=== PATIENT | female | born 1960 | race African-American/Black ===

== ENCOUNTER 2023-12-28 13:09 | Emergency (ER) | payer MEDICAID, OTHER ==
[~2023-12-28] VITALS: Ht 175.3 cm; Wt 55.4 kg
[2023-12-28] MEDS ORDERED: ACET500T58 PO (16:22)
[2023-12-28] MEDS ORDERED: MELO7.5T7 PO (16:22)
[2023-12-28] MEDS: cloNIDine HCL 0.1 MG TAB PO ONE (16:36)
[2023-12-28 17:00] VITALS: BP 135/66; PULSE 66; RESP 18; TEMP 97.8; O2SAT 98
[2023-12-28] MEDS ORDERED: AML5T PO (17:18)
== END 2023-12-28 17:19 | disposition home or self-care (01) ==
LOC: ER 13:09
DX: M19.012 Primary osteoarthritis, left shoulder (principal); M17.11 Unilateral primary osteoarthritis, right knee; J45.909 Unspecified asthma, uncomplicated; F17.210 Nicotine dependence, cigarettes, uncomplicated
CPT/HCPCS: 73030; 73562

== ENCOUNTER 2024-02-15 22:03 | Inpatient (IN) | payer MEDICAID ==
[~2024-02-15] VITALS: Ht 157.5 cm; Wt 61.6 kg
[~2024-02-15 22:03] MED LIST: ACET500T58 PO; AML5T PO; MELO7.5T7 PO
[2024-02-15] MEDS: SODIUM CHLORIDE 0.9% 1,000 ML IVB ONE (22:30)
[2024-02-15 22:49] LABS: Basophils # (auto) 0 10 ^3/uL (0-0.2); Basophils % (auto) 0.3 % (0.0-2.0); Eosinophils # (auto) 0 10 ^3/uL (0-0.8); Hemoglobin 13.1 g/dL (12.2-16.2); Mean Corpuscular Hemoglobin 36.2 pg (28.0-32.0); Mean Corpuscular Hgb Conc. 34.8 g/dL (32.0-36.0); Red Blood Cells 3.61 10^6/uL (4.0-5.20); White Blood Cell 5.8 10^3/uL (4.4-10.8)
[2024-02-15 22:50] LABS: Eosinophils % (auto) 0.5 % (0.0-7.0); Hematocrit 37.5 % (36.0-46.0); Lymphocytes # (auto) 3.2 10 ^3/uL (0.4-5.4); Lymphocytes % (auto) 54.2 % (10.0-50.0); Monocytes # (auto) 0.6 10 ^3/uL (0-1.3); Monocytes % (auto) 10.7 % (0.0-12.0); Neutrophils % (auto) 34.3 % (37.0-80.0); Nucleated Red Blood Cells % 0.1 %; Red Cell Distribution Width 13.6 % (11.8-14.3)
[2024-02-15 23:08] LABS: Chloride 109 mmol/L (98-107); Potassium 3.2 mmol/L (3.5-5.1); Sodium 139 mmol/L (136-145)
[2024-02-15 23:09] LABS: Anion Gap 8 (5-15); Carbon Dioxide 22 mmol/L (20-30)
[2024-02-15 23:10] LABS: Calcium 9.9 mg/dL (8.5-10.1)
[2024-02-15 23:15] LABS: Blood Alcohol 17.9 mg/dL (<10); Glucose 100 mg/dL (74-106)
[2024-02-15 23:34] LABS: BUN/Creatinine Ratio 7.8 (10.0-20.0); Blood Urea Nitrogen < 5 mg/dL (9-23)
[2024-02-16] MEDS ORDERED: ONDANSETRON HCL 4 MG/2 ML VIAL IV PRN
[2024-02-16] MEDS ORDERED: TEMAZEPAM 15 MG CAP PO PRN
[2024-02-16] MEDS ORDERED: ACETAMINOPHEN 325 MG TAB PO PRN
[2024-02-16 04:33] VITALS: PULSE 78; RESP 17; O2SAT 99
[2024-02-16] MEDS: POTASSIUM CHL 20 Meq TABLET PO ONE (05:40)
[2024-02-16] MEDS ORDERED: cloNIDine HCL 0.1 MG TAB PO PRN (06:45)
[2024-02-16] MEDS: amLODIPine BESYLATE 5 MG TAB PO SCH (07:59)
[2024-02-16 08:02] LABS: Chloride 112 mmol/L (98-107); Potassium 3.8 mmol/L (3.5-5.1); Sodium 140 mmol/L (136-145)
[2024-02-16 08:04] LABS: Anion Gap 4 (5-15); Calcium 8.9 mg/dL (8.5-10.1); Carbon Dioxide 24 mmol/L (20-30)
[2024-02-16 08:09] LABS: BUN/Creatinine Ratio 11.5 (10.0-20.0); Blood Urea Nitrogen 6 mg/dL (9-23); Glucose 87 mg/dL (74-106)
[2024-02-16] MEDS ORDERED: hydrALAZINE HCL 20 MG/ML VL IV PRN (08:45)
[2024-02-16 09:08] VITALS: PULSE 83; RESP 19; O2SAT 96
[2024-02-16 09:29] LABS: INR 1.08 (0.9-1.15); Partial Thromboplastin Time 24.4 SEC (24.5-34.5); Prothrombin Time 11.4 sec (9.3-11.8)
[2024-02-16 09:38] LABS: Folate (Folic Acid) 47.38 ng/mL (>5.38)
[2024-02-16 09:42] LABS: Urine Bacteria MANY /hpf (None Seen); Urine Blood Negative /uL (Negative); Urine Clarity Turbid (Clear); Urine Color Light-Orange (Yellow); Urine Hyaline Cast FEW /lpf (0 - 2); Urine Mucus FEW (None Seen); Urine Protein, UAD Negative (Negative); Urine Specific Gravity 1.014 (1.001-1.035); Urine Urobilinogen Normal (Negative); Urine WBC 4 /hpf (0 - 5)
[2024-02-16 09:50] LABS: Amphetamine Screen, Urine Neg (NEGATIVE); Barbiturate Scree,Urine Neg (NEGATIVE); Benzodiazephine Screen, Urine Neg (NEGATIVE); Cocaine Screen, Urine Neg (NEGATIVE); Opiate Scree,Urine Neg (NEGATIVE)
[2024-02-16 09:51] LABS: Cannabinoid Screen, Urine Pos (NEGATIVE); Phencyclidine Screen, Urine Neg (NEGATIVE)
[2024-02-16 09:56] VITALS: PULSE 87; RESP 16; O2SAT 96
[2024-02-16 09:56] LABS: Basophils # (auto) 0 10 ^3/uL (0-0.2); Basophils % (auto) 0.3 % (0.0-2.0); Eosinophils # (auto) 0 10 ^3/uL (0-0.8); Eosinophils % (auto) 0.5 % (0.0-7.0); Hematocrit 36.5 % (36.0-46.0); Hemoglobin 12.2 g/dL (12.2-16.2); Lymphocytes # (auto) 2.3 10 ^3/uL (0.4-5.4); Lymphocytes % (auto) 51.9 % (10.0-50.0); Mean Corpuscular Hemoglobin 34.9 pg (28.0-32.0); Mean Corpuscular Hgb Conc. 33.5 g/dL (32.0-36.0); Mean Corpuscular Volume 104.3 fL (80.0-100.0); Monocytes # (auto) 0.6 10 ^3/uL (0-1.3); Monocytes % (auto) 12.8 % (0.0-12.0); Neutrophils # (auto) 1.6 10 ^3/uL (1.6-8.6); Neutrophils % (auto) 34.5 % (37.0-80.0); Nucleated Red Blood Cells % 0.2 %; Red Cell Distribution Width 13.7 % (11.8-14.3); White Blood Cell 4.5 10^3/uL (4.4-10.8)
[2024-02-16] MEDS ORDERED: LORazepam 2MG/ML-1ML VIAL IV PRN ×3 (10:00)
[2024-02-16] MEDS: THIAMINE 100mg/ml INJ (200mg/2ml VIAL) IV SCH (10:11)
[2024-02-16] MEDS: LISINOPRIL 5 MG TAB PO SCH (10:11)
[2024-02-16 10:38] LABS: Erythrocyte Sedimentation Rate 14 mm/hr (0-20)
[2024-02-16 10:40] LABS: Rapid Influenza A Negative (Negative); Rapid Influenza B Negative (Negative)
[2024-02-16] MEDS: FOLIC ACID 1 MG in D5W 5% 50 ML INJ ONE (10:41)
[2024-02-16 11:50] LABS: Alkaline Phosphatase 60 U/L (46-116); CRP High Sensitivity < 0.02 mg/dL (<1.0); Magnesium 1.2 mg/dL (1.6-2.6)
[2024-02-16 11:51] LABS: Alanine Aminotransferase 43 U/L (7-40); Aspartate Aminotransferase 55 U/L (13-40)
[2024-02-16 11:52] LABS: Albumin 3.7 g/dL (3.2-4.8); Bilirubin, Total 0.7 mg/dL (0.2-1.0); Total Protein 6.3 g/dL (5.7-8.2)
[2024-02-16 12:58] LABS: COVID19 ANTIGEN SOFIA FIA NEGATIVE (NEGATIVE)
[2024-02-16] MEDS ORDERED: SIMV20TA20 PO (17:10)
[2024-02-16] MEDS: ENOXAPARIN SOD 40 MG/0.4 ML SYRINGE SC ONE (19:00)
[2024-02-16] MEDS: cefTRIAXone 1GM/50ML D5W 50 ML IV ONE (19:00)
[2024-02-16 20:00] VITALS: PULSE 75
[2024-02-16] MEDS: MAGNESIUM SULFATE 1GM/100ML 100 ML IV SCH (20:00)
[2024-02-16 21:14] VITALS: BP 143/68; PULSE 74; RESP 17; TEMP 98.3; O2SAT 96
[2024-02-16] MEDS: ATORVASTATIN 20 MG TAB PO SCH (22:00)
[2024-02-17 01:21] VITALS: BP 140/71; PULSE 69; RESP 16; TEMP 98.1; O2SAT 97
[2024-02-17 05:53] VITALS: BP 142/91; PULSE 84; RESP 17; TEMP 98.9; O2SAT 100
[2024-02-17 06:05] LABS: Hematocrit 36.6 % (36.0-46.0); Red Blood Cells 3.52 10^6/uL (4.0-5.20); Red Cell Distribution Width 13.7 % (11.8-14.3); White Blood Cell 4.4 10^3/uL (4.4-10.8)
[2024-02-17 06:08] LABS: Hemoglobin 12.5 g/dL (12.2-16.2); Mean Corpuscular Hemoglobin 35.5 pg (28.0-32.0); Mean Corpuscular Hgb Conc. 34.1 g/dL (32.0-36.0); Mean Corpuscular Volume 104.1 fL (80.0-100.0)
[2024-02-17 06:15] LABS: Anion Gap 6 (5-15); Carbon Dioxide 23 mmol/L (20-30); Chloride 108 mmol/L (98-107); Potassium 3.5 mmol/L (3.5-5.1); Sodium 137 mmol/L (136-145)
[2024-02-17 06:16] LABS: Calcium 9.6 mg/dL (8.7-10.4)
[2024-02-17 06:21] LABS: Glucose 87 mg/dL (74-106); Magnesium 1.6 mg/dL (1.6-2.6)
[2024-02-17 06:23] LABS: BUN/Creatinine Ratio 9.4 (10.0-20.0); Blood Urea Nitrogen < 5 mg/dL (9-23)
[2024-02-17 06:25] LABS: Basophils % (manual) 0 (0.0-2.0); Blast Cells 0; Eosinophils % (manual) 0 (0-7); Metamyelocytes % 0; Myelocytes % 0; Promyelocytes % 0; Reactive Lymphocytes 0
[2024-02-17 06:42] LABS: Cholesterol 183 mg/dL (< 200); HDL Cholesterol 73 mg/dL (40-59); LDL Cholesterol 103 mg/dL (< 100); Triglycerides 84 mg/dL (< 150)
[2024-02-17 06:51] LABS: Band Neutrophils % (manual) 1
[2024-02-17 06:52] LABS: Large Platelets FEW; Lymphocytes % (manual) 60 (10.0-50.0); Macrocytosis Slight; Monocytes % (manual) 9 (0-12); Platelet Estimate Decreased
[2024-02-17 07:07] LABS: RPR Non Reactive (Non Reactive)
[2024-02-17 08:00] VITALS: PULSE 73
[2024-02-17] MEDS ORDERED: THIA100T10 GT (08:19)
[2024-02-17] MEDS ORDERED: LISI20TA56 PO (08:19)
[2024-02-17] MEDS ORDERED: CEFP200T15 PO (08:19)
[2024-02-17] MEDS ORDERED: MAGN400T40 PO (08:19)
[2024-02-17] MEDS ORDERED: ATOR40TA52 PO (08:21)
[2024-02-17 08:53] VITALS: BP 135/88; PULSE 76; RESP 20; TEMP 98.4; O2SAT 97
[2024-02-17] MEDS: cefTRIAXone 1GM/50ML D5W 50 ML IV SCH (09:00)
[2024-02-17] MEDS: ENOXAPARIN SOD 40 MG/0.4 ML SYRINGE SC SCH (10:00)
[2024-02-17] MEDS: LISINOPRIL 5 MG TAB PO SCH (10:00)
[2024-02-17 12:41] VITALS: BP 126/93; PULSE 96; RESP 20; TEMP 98.4; O2SAT 99
[2024-02-17] MEDS ORDERED: ATORVASTATIN 20 MG TAB PO SCH (22:00)
[2024-02-22 10:06] LABS: Methylmalonic Acid 132 nmol/L (0-378)
[2024-02-22 19:06] LABS: Vitamin B1, Whole Blood 71.1 nmol/L (66.5-200.0)
== END 2024-02-17 12:30 | disposition home or self-care (01) | DRG 53 ==
LOC: ER 22:03 → OVERFLOW 23:58 → WEST WING 02-16 15:10 → TELE-WESTW 02-16 16:42
PROVIDERS: ADMIT Internal Medicine; ATTEND Emergency Medicine
DX: G40.509 Epileptic seizures related to external causes, not intractable, without status epilepticus (principal); D75.89 Other specified diseases of blood and blood-forming organs; I10 Essential (primary) hypertension; F10.129 Alcohol abuse with intoxication, unspecified; E87.6 Hypokalemia; Z20.822 Contact with and (suspected) exposure to COVID-19; E83.42 Hypomagnesemia; N39.0 Urinary tract infection, site not specified; E78.5 Hyperlipidemia, unspecified; F17.210 Nicotine dependence, cigarettes, uncomplicated; J44.89 Other specified chronic obstructive pulmonary disease; Z79.1 Long term (current) use of non-steroidal anti-inflammatories (NSAID); Z79.899 Other long term (current) drug therapy; Z83.3 Family history of diabetes mellitus; Z82.49 Family history of ischemic heart disease and other diseases of the circulatory system
CPT/HCPCS: 36415; 70450; 70551; 80048; 80053; 80061; 80307; 80320; 81001; 82306; 82607; 82746; 82962; 83036; 83735; 84100; 84425; 84443; 85007; 85025; 85027; 85045; 85610; 85652; 85730; 86141; 86592; 87086; 87426; 87804; G0378; J7060

== ENCOUNTER 2024-03-06 03:55 | Inpatient (IN) | payer MEDICAID ==
[2024-03-06] VITALS (9 sets, daily range): BP systolic 130–145; BP diastolic 68–77; PULSE 60–110; RESP 12–18; TEMP 97.9–98.1; O2SAT 96–98
[~2024-03-06] VITALS: Ht 170.2 cm; Wt 56.0 kg
[~2024-03-06 03:55] MED LIST changes: +ATOR40TA52 PO; +CEFP200T15 PO; +LISI20TA56 PO; +MAGN400T40 PO; +SIMV20TA20 PO; +THIA100T10 GT
[2024-03-06] MEDS: EPINEPHrine HCL 1 MG/1 ML AMP IM ONE (04:12)
[2024-03-06] MEDS: FAMOTIDINE (10MG/ML) 2ML VL IV ONE (04:13)
[2024-03-06] MEDS: diphenhdrAMINE HCL 50 MG/1 ML VL IV ONE (04:13)
[2024-03-06] MEDS: DexAMETHasone SOD PHOS 10MG/1ML VIAL INJ IV ONE (04:13)
[2024-03-06] MEDS ORDERED: TRANEXAMIC ACID 1,000 MG in SODIUM CHL 0.9% 100 ML IV ONE (04:15)
[2024-03-06] MEDS: TRANEXAMIC ACID 1,000 MG in SODIUM CHL 0.9% 100 ML IV ONE (04:50)
[2024-03-06] MEDS: TRANEXAMIC ACID 10 ML ONE (04:56)
[2024-03-06] MEDS ORDERED: NITROGLYCERIN 0.4 MG SL TAB SL PRN (06:45)
[2024-03-06] MEDS ORDERED: ONDANSETRON HCL 4 MG/2 ML VIAL IV PRN (06:45)
[2024-03-06] MEDS ORDERED: DOCUSATE SOD 100 MG CAP PO PRN (06:45)
[2024-03-06] MEDS ORDERED: hydrALAZINE HCL 20 MG/ML VL IV PRN (06:45)
[2024-03-06] MEDS ORDERED: diphenhdrAMINE HCL 50 MG/1 ML VL IV PRN (06:45)
[2024-03-06] MEDS ORDERED: ALBUTEROL SULF 2.5 MG/0.5ML(0.5%) NEB SOLN NEB PRN (06:45)
[2024-03-06] MEDS ORDERED: HYDROcodone-ACET 5/325MG TAB PO PRN (06:45)
[2024-03-06] MEDS ORDERED: MORPHINE SULFATE INJ 2 MG/ml SYRG IV PRN (06:45)
[2024-03-06] MEDS: SODIUM CHLORIDE 0.9% 1,000 ML IV SCH (07:54)
[2024-03-06] MEDS: DexAMETHasone SOD PHOS 10MG/1ML VIAL INJ IV SCH (10:18)
[2024-03-06] MEDS: FAMOTIDINE (10MG/ML) 2ML VL IV SCH (10:18)
[2024-03-06] MEDS ORDERED: METO25TA93 PO (10:42)
[2024-03-06 12:46] LABS: Basophils # (auto) 0 10 ^3/uL (0-0.2); Basophils % (auto) 0.1 % (0.0-2.0); Eosinophils # (auto) 0 10 ^3/uL (0-0.8); Lymphocytes # (auto) 0.5 10 ^3/uL (0.4-5.4); Monocytes # (auto) 0 10 ^3/uL (0-1.3)
[2024-03-06 12:52] LABS: Hematocrit 38.4 % (36.0-46.0); Hemoglobin 12.8 g/dL (12.2-16.2); Lymphocytes % (auto) 17.9 % (10.0-50.0); Mean Corpuscular Hemoglobin 35.3 pg (28.0-32.0); Mean Corpuscular Hgb Conc. 33.3 g/dL (32.0-36.0); Mean Corpuscular Volume 105.9 fL (80.0-100.0); Monocytes % (auto) 0.8 % (0.0-12.0); Neutrophils # (auto) 2.5 10 ^3/uL (1.6-8.6); Neutrophils % (auto) 81.2 % (37.0-80.0); Nucleated Red Blood Cells % 0.1 %; Red Blood Cells 3.62 10^6/uL (4.0-5.20); Red Cell Distribution Width 13.5 % (11.8-14.3); White Blood Cell 3.1 10^3/uL (4.4-10.8)
[2024-03-06 13:00] LABS: Alanine Aminotransferase 100 U/L (7-40); Albumin 4.1 g/dL (3.2-4.8); Alkaline Phosphatase 62 U/L (46-116); Anion Gap 8 (5-15); Aspartate Aminotransferase 82 U/L (13-40); BUN/Creatinine Ratio 10.9 (10.0-20.0); Blood Urea Nitrogen 7 mg/dL (9-23); Calcium 9.9 mg/dL (8.7-10.4); Carbon Dioxide 20 mmol/L (20-30); Chloride 112 mmol/L (98-107); Glucose 150 mg/dL (74-106); Potassium 4.2 mmol/L (3.5-5.1); Sodium 140 mmol/L (136-145)
[2024-03-06 13:01] LABS: Bilirubin, Total 0.4 mg/dL (0.2-1.0); Total Protein 6.9 g/dL (5.7-8.2)
[2024-03-06] MEDS: ATORVASTATIN 20 MG TAB PO SCH (21:10)
[2024-03-07 03:13] LABS: Urine Bacteria None Seen /hpf (None Seen)
[2024-03-07] MEDS: ACETAMINOPHEN 325 MG TAB PO PRN (03:16)
[2024-03-07 03:31] LABS: Amphetamine Screen, Urine Neg (NEGATIVE); Barbiturate Scree,Urine Neg (NEGATIVE); Benzodiazephine Screen, Urine Neg (NEGATIVE); Cannabinoid Screen, Urine Pos (NEGATIVE); Cocaine Screen, Urine Neg (NEGATIVE); Opiate Scree,Urine Neg (NEGATIVE); Phencyclidine Screen, Urine Neg (NEGATIVE)
[2024-03-07 03:42] LABS: Urine Blood Negative /uL (Negative); Urine Clarity Clear (Clear); Urine Color Light-Yellow (Yellow); Urine Protein, UAD Negative (Negative); Urine Specific Gravity 1.008 (1.001-1.035); Urine Urobilinogen Normal (Negative); Urine WBC <1 /hpf (0 - 5)
[2024-03-07 05:00] VITALS: BP 150/86; PULSE 79; RESP 18; TEMP 98; O2SAT 100
[2024-03-07 07:01] LABS: Basophils # (auto) 0 10 ^3/uL (0-0.2); Basophils % (auto) 0.1 % (0.0-2.0); Eosinophils # (auto) 0 10 ^3/uL (0-0.8); Lymphocytes # (auto) 1.7 10 ^3/uL (0.4-5.4); Monocytes # (auto) 0.7 10 ^3/uL (0-1.3); White Blood Cell 6.9 10^3/uL (4.4-10.8)
[2024-03-07 07:05] LABS: Hematocrit 34.3 % (36.0-46.0); Lymphocytes % (auto) 24.8 % (10.0-50.0); Mean Corpuscular Hemoglobin 35.9 pg (28.0-32.0); Mean Corpuscular Hgb Conc. 35.1 g/dL (32.0-36.0); Mean Corpuscular Volume 102.5 fL (80.0-100.0); Monocytes % (auto) 9.6 % (0.0-12.0); Neutrophils # (auto) 4.5 10 ^3/uL (1.6-8.6); Neutrophils % (auto) 65.5 % (37.0-80.0); Nucleated Red Blood Cells % 0.1 %; Red Blood Cells 3.35 10^6/uL (4.0-5.20); Red Cell Distribution Width 13.3 % (11.8-14.3)
[2024-03-07 07:17] LABS: Alanine Aminotransferase 90 U/L (7-40); Alkaline Phosphatase 58 U/L (46-116); Anion Gap 8 (5-15); BUN/Creatinine Ratio 15.4 (10.0-20.0); Blood Urea Nitrogen 10 mg/dL (9-23); Calcium 9.9 mg/dL (8.7-10.4); Carbon Dioxide 23 mmol/L (20-30); Chloride 107 mmol/L (98-107); Glucose 113 mg/dL (74-106); Potassium 3.5 mmol/L (3.5-5.1); Sodium 138 mmol/L (136-145)
[2024-03-07 07:18] LABS: Albumin 4.2 g/dL (3.2-4.8); Aspartate Aminotransferase 72 U/L (13-40); Bilirubin, Total 0.7 mg/dL (0.2-1.0)
[2024-03-07 08:00] VITALS: PULSE 67
[2024-03-07 09:00] VITALS: BP 167/90; PULSE 64; RESP 16; TEMP 98.5; O2SAT 93
[2024-03-07 09:37] VITALS: O2SAT 93
[2024-03-07] MEDS ORDERED: PRED20TA2 PO (10:48)
[2024-03-07] MEDS ORDERED: LORA-622 PO (10:48)
[2024-03-07] MEDS ORDERED: CARV-214 PO (10:48)
[2024-03-07 11:37] VITALS: BP 167/90; PULSE 64; RESP 16; TEMP 36.9; O2SAT 93
[2024-03-07] MEDS: CARVEDILOL 3.125 MG TAB PO ONE (12:05)
[2024-03-07] MEDS ORDERED: CARVEDILOL 3.125 MG TAB PO SCH (22:00)
== END 2024-03-07 12:06 | disposition home or self-care (01) | DRG 82 ==
LOC: ER 03:55 → TELE 06:40 → TELE-CENTR 18:11
PROVIDERS: ADMIT Internal Medicine; ATTEND Internal Medicine
DX: S00.12XA Contusion of left eyelid and periocular area, initial encounter (principal); S09.8XXA Other specified injuries of head, initial encounter; T78.49XA Other allergy, initial encounter; E78.5 Hyperlipidemia, unspecified; H02.89 Other specified disorders of eyelid; J44.9 Chronic obstructive pulmonary disease, unspecified; I10 Essential (primary) hypertension; F17.210 Nicotine dependence, cigarettes, uncomplicated; W18.39XA Other fall on same level, initial encounter; Z82.49 Family history of ischemic heart disease and other diseases of the circulatory system; Z83.3 Family history of diabetes mellitus; Y93.89 Activity, other specified; Y92.89 Other specified places as the place of occurrence of the external cause; Y99.8 Other external cause status
CPT/HCPCS: 36415; 70450; 80053; 80307; 81001; 85025; 96361; 96365; 96372; 96375; 96376; G0378; J0171; J1100; J3490